=== PATIENT | female | born 1985 | race Caucasian/White ===

== ENCOUNTER 2017-12-16 14:18 | Emergency (ER) | payer MEDICAID ==
[~2017-12-16] VITALS: Ht 165.1 cm; Wt 100.0 kg
[~2017-12-16 14:18] MED LIST: BACTRIM DS1 TAB PO; CALNA PO; CIPRO500 MG PO; CLARITIN10 M1 PO; E.E.S. 400400 MG OR; LORTAB 5 OR; NO HOME MEDS; TAM75CAP OR; ULTRAM50 MG OR; ZITHROMAX250 MG OR; ZOFRAN ODT4 MG OR; ZOFRAN ODT8 MG OR; ZPAK PO
[2017-12-16 15:02] VITALS: BP 170/82
== END 2017-12-16 14:27 | disposition left against medical advice (07) | DRG 951 ==
LOC: ED 14:18 → LWOBS 14:27
DX: Z91.19 Patient's noncompliance with other medical treatment and regimen (principal)

== ENCOUNTER 2019-06-24 07:28 | Emergency (ER) | payer MEDICAID ==
[~2019-06-24] VITALS: Ht 165.1 cm; Wt 95.5 kg
[2019-06-24 08:11] LABS: HEMATOCRIT 42.4 % (37.0-47.0); HEMOGLOBIN 13.9 g/dl (12.0-16.0)
[2019-06-24 10:05] VITALS: BP 150/85
== END 2019-06-24 10:05 | disposition home or self-care (01) ==
LOC: ED 07:28
PROVIDERS: Family Medicine
DX: K64.8 Other hemorrhoids (principal); F17.200 Nicotine dependence, unspecified, uncomplicated

== ENCOUNTER 2021-02-16 08:49 | Emergency (ER) | payer MEDICAID ==
[~2021-02-16] VITALS: Ht 165.1 cm; Wt 100.0 kg
[2021-02-16] MEDS ORDERED: BENADRYL A12.5 MG/1 PO (11:10)
[2021-02-16] MEDS ORDERED: LIDOCAINE HCL VIS2 % PO (11:10)
[2021-02-16 11:20] VITALS: BP 155/78
== END 2021-02-16 11:20 | disposition home or self-care (01) ==
LOC: ED 08:49
DX: J06.9 Acute upper respiratory infection, unspecified (principal); I10 Essential (primary) hypertension; F17.210 Nicotine dependence, cigarettes, uncomplicated; Z20.822 Contact with and (suspected) exposure to COVID-19